=== PATIENT | female | born 2000 | race Caucasian/White ===

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

== ENCOUNTER 2019-01-25 00:12 | Outpatient (CLI) | payer OTHER ==
[~2019-01-25] VITALS: Ht 162.6 cm; Wt 89.9 kg
[~2019-01-25 00:12] MED LIST: PREN1TAB13 PO
[2019-01-25 00:22] VITALS: Ht 162.6 cm; Wt 89.9 kg
[2019-01-25 00:23] VITALS: BP 121/73; PULSE 103; RESP 17
--- NOTE | 2019-01-26 09:29 | PN ---
Triage Information Date/Time late entry note for 01/25/2019 Reason for visit: DFM Weeks of Gestation at 36+ wks ga CAPO 02/19/2019 presents with decreased movement She denies uterine contractions, denies vaginal bleeding or leaking fluid /Para Diabetes: none Hypertention: none Objective Vital Signs Date Temp Pulse Resp B/P (MAP) Pulse Ox O2 O2 Flow FiO2 Time Delivery Rate 01/25/19 97.9 103 17 121/73 Room Air 00:23 (89) Heart Rate: 140's Heart Rate Comments FHR tracing cat1 Contractions: None Results/Medications Imaging Results PROCEDURE: Biophysical profile. CLINICAL INDICATION: Decreased movement. TECHNIQUE: Multiple sonographic images of the pelvis were obtained with transabdominal technique. COMPARISON: 12/08/2018. FINDINGS: There is a single living intrauterine gestation with the fetus in a vertex position. The placenta is fundal in location, grade 1. heart tones of 144 beats per minute are identified. There is normal amniotic fluid volume with an FRANCIA of 13.4 cm. breathing movements = 2 Gross body movements = 2 tone = 2 Qualitative AFV = 2 IMPRESSION: Biophysical profile 8 out of 8. .Uriah Ching MD, Date Time Electronically viewed and signed by .Uriah Ching MD, on 01/25/2019 01:21 .T/ CC: LLOYD LE MD [phone] Disposition: Discharge Assessment/Plan patient reports feeling movement here in triage kick count instructions were given labor precautions were given patient instructed to f/u with obgyn clinic in 1-2 days LLOYD LE MD Jan 26, 2019 09:29
== END 2019-01-25 03:12 | disposition home or self-care (01) ==
LOC: OBT 00:12 → L-D 00:14 → OBT 03:12
PROVIDERS: ATTEND Specialist
DX: O36.8130 Decreased fetal movements, third trimester, not applicable or unspecified (principal); Z3A.36 36 weeks gestation of pregnancy
CPT/HCPCS: 76818; Z7500; G0463

== ENCOUNTER 2019-01-31 09:56 | Outpatient (CLI) | payer OTHER ==
[~2019-01-31] VITALS: Ht 162.6 cm; Wt 91.0 kg
[2019-01-31 10:25] VITALS: Ht 162.6 cm; Wt 91.0 kg
[2019-01-31 10:26] VITALS: BP 137/83; PULSE 108; RESP 20
--- NOTE | 2019-01-31 20:15 | PN ---
Triage Information Date/Time Reason for visit: Possible leakage of fluid Weeks of Gestation 7 weeks and 2 days /Para G1 Diabetes: none Hypertention: none Objective Vital Signs Date Temp Pulse Resp B/P (MAP) Pulse Ox O2 O2 Flow FiO2 Time Delivery Rate 01/31/19 97.7 108 20 137/83 Room Air 10:26 (101) Contractions: None Results/Medications Results 24 hrs Laboratory Tests Test 01/31/19 10:10 Membranes Rupture NEGATIVE Disposition: Discharge Assessment/Plan 18 years old 1 with single intrauterine at 37 weeks and 2 days complaining of possible leakage of fluid. She states good movement. She denies nausea, vomiting, shortness of breath, chest pain, headache, visual changes, vaginal bleeding. -FHR: No sign of metabolic acidosis- Category I -Contractions: None -SSE: No leakage or gush of fluid seen nitrazine and ROM plus negative -Ultrasound performed: Normal FRANCIA, BPP 8 out of 8 -Symptoms and sign of labor, preeclampsia, kick count discussed with patient, she voiced understanding. All of her questions answered. -Patient was discharged home in stable condition with the appropriate discharge instructions provided. I would like patient to have close follow-up with her primary physician or outpatient clinic in 1-2 days or return to triage for worsening symptoms or any other urgent concerns. PAUL SHORT Jan 31, 2019 20:15
== END 2019-01-31 11:54 | disposition home or self-care (01) ==
LOC: OBT 09:56 → L-D 09:56 → OBT 11:54
PROVIDERS: ATTEND Specialist
DX: O41.91X0 Disorder of amniotic fluid and membranes, unspecified, first trimester, not applicable or unspecified (principal); Z3A.01 Less than 8 weeks gestation of pregnancy
CPT/HCPCS: 76815; 76818; 84112; Z7500; G0463

== ENCOUNTER 2019-02-01 01:28 | Inpatient (IN) | payer OTHER ==
[~2019-02-01] VITALS: Ht 162.6 cm; Wt 92.2 kg
[2019-02-01 02:05] VITALS: Ht 162.6 cm; Wt 92.2 kg
[2019-02-01 02:12] VITALS: BP 139/81
[2019-02-01] MEDS ORDERED: LACTATED RINGER'S 1,000 ML IV PRN (04:55)
[2019-02-01] MEDS ORDERED: MISOPROSTOL 200 MCG TAB PR PRN (05:00)
[2019-02-01] MEDS ORDERED: OXYTOCIN 30 UNITS/LR 500 ML IV SCH (05:00)
[2019-02-01] MEDS ORDERED: CARBOPROST 250 MCG INJ IM PRN (05:00)
[2019-02-01] MEDS ORDERED: LIDOCAINE 1% (MPF) 30 ML INJ INJ PRN (05:00)
[2019-02-01] MEDS ORDERED: AMPICILLIN 2 GM/NS (PMX) 100 ML IV ONE (05:00)
[2019-02-01] MEDS ORDERED: IBUPROFEN 600 MG TAB PO PRN (05:00)
[2019-02-01] MEDS ORDERED: BUTORPHANOL 2 MG INJ IV PRN (05:00)
[2019-02-01] MEDS ORDERED: OXYTOCIN 30 UNITS/LR 500 ML IV PRN ×2 (05:00)
[2019-02-01] MEDS ORDERED: METHYLERGONOVINE 0.2 MG INJ IM PRN (05:00)
[2019-02-01] MEDS: LACTATED RINGER'S 1,000 ML IV SCH ×3 (05:20→23:27)
--- NOTE | 2019-02-01 08:39 | HP ---
Date/Time of Note Date/Time of Note DATE: 02/01/19 TIME: 08:20 OB - History Hx of Present Free Text/Dictation 18y.0 here at 37w3d with Uc's 2-3min which is mild in intensity and intact membrane. Initial VE /-3 Her care was initiated at 17w, was unevenful Initial BP 139/81 at triage repeated one was 134/90 ,but compare to her BP in October not significantly elevated. GBS status neg. admitted for expectant management and observation of BP with PIH lab,possible augmentation of labor . Chief Complaint: uc's with vaginal spotting Estimated Due Date: Feb 19, 2019 : 1 Para: 0 Spontaneous : 0 Therapeutic : 0 Care: Limited Care Ultrasounds: Normal mid trimester US Obstetrical Complications: None Medical Complications: None Past Family/Social History * Past Medical, Surgical, Family and Obstetric Histories reviewed from chart. Blood Type: O+ Rubella: immune RPR/VDRL: Negative GBS Status: Negative HBsAG: Negative OB Admission Exam Vital Signs Vital Signs Vital Signs Date Temp Pulse Resp B/P (MAP) Pulse Ox O2 O2 Flow FiO2 Time Delivery Rate 02/01/19 97.9 94 20 139/81 Room Air 02:12 (100) Physical Exam HEENT: WNL Heart: Rhythm Normal Lungs: Clear, Equal Abdomen: WNL Extremities: Normal Reflexes: Normal Cervical Dilatation: 1cm Effacement: Other (60%) Station: -3 Membranes: Intact Amniotic Fluid: Unevaluable Heart Rate: 130's Accelerations: Accelerations Present Decelerations: No Decelerations Varibility: Moderate Contractions on Admission: < 5 Minutes Apart Intensity: Mild Last 72 hours Lab Results CBC & BMP 02/01/19 05:05 Liver Function Test 02/01/19 05:05 Alanine Aminotransferase (ALT/SGPT) 12 L Albumin 3.4 Alkaline Phosphatase 150 H Aspartate Amino Transf (AST/SGOT) 27 Direct Bilirubin 0.00 Total Protein 6.8 OB Assessment/Plan Other Assessment: A IUP 37w3d in early labor R/O GHTN Plan: Expectant Management (PIH lab observation BP ,poss augmentation), Other TRAVIS CANALES MD Feb 01, 2019 08:30
--- NOTE | 2019-02-01 08:44 | QN ---
Documentation Comment EFM uc's q2min apart one variable deceleration noted down to 90's for 3min while I was standing. and SROM blood tinged small amount noted informed RN(Jennifer) regarding deceleration . TRAVIS CANALES MD Feb 01, 2019 08:44
[2019-02-01] MEDS ORDERED: AMPICILLIN 1 GM/NS (PMX) 50 ML IV SCH (09:00)
--- NOTE | 2019-02-01 12:11 | PREAC ---
Date/Time of Note Date/Time of Note DATE: 02/01/19 TIME: 12:10 Anesthesia Eval and Record Evaluation Time Pre-Procedure Interview DATE: 02/01/19 TIME: 12:10 Age 18 Sex female NPO: 8 hrs Preoperative diagnosis Labor Pain Planned procedure Labor Epidural Past Medical History Past Medical History: Includes Heme: Anemia : : (1), Para: (0), Gestational age: (37) Surgery & Anesthesia Issues No known issue Meds Anticoagulation: No Beta Luma within 24 hr: No Reason Beta Luma not given: Pt. not on B-Luma Reported Medications Pnv95/Ferrous Fumarate/FA ( Vitamins Tablet) 1 Each Tablet, 1 EACH PO, TAB 01/31/19 Current Medications Lactated Ringer's 1,000 ml @ 125 mls/hr Q8H IV Last administered on 02/01/19at 05:20; Admin Dose 125 MLS/HR; Start 02/01/19 at 04:55 Ampicillin 50 ml @ 100 mls/hr Q4H IV ; Start 02/01/19 at 09:00 Butorphanol Tartrate (Stadol) 2 mg Q2H PRN IV .PAIN SCALE 6-10; Start 02/01/19 at 05:00 Lidocaine (Xylocaine 1% (Mpf)) 30 ml ONCE PRN INJ .EPISIOTOMY; Start 02/01/19 at 05:00 Oxytocin/Lactated Ringer's 500 ml @ 500 mls/hr ONCE POST IV ; Start 02/01/19 at 05:00 Oxytocin/Lactated Ringer's 500 ml @ 125 mls/hr POST IV ; Start 02/01/19 at 05:00 Ibuprofen (Motrin) 600 mg ONCE PRN PO .PAIN 1-5; Start 02/01/19 at 05:00 Lactated Ringer's 1,000 ml @ 2,000 mls/hr Q30M PRN IV .ANESTHESIA; Start 02/01/19 at 04:55 Oxytocin/Lactated Ringer's 500 ml @ 0 mls/hr ONCE PRN IV .VAGINAL BLEEDING; Start 02/01/19 at 05:00 Methylergonovine Maleate (Methergine) 0.2 mg ONCE PRN IM .VAGINAL BLEEDING; Start 02/01/19 at 05:00 Carboprost Tromethamine (Hemabate) 250 mcg ONCE PRN IM .VAGINAL BLEEDING; Start 02/01/19 at 05:00 Misoprostol (Cytotec) 1,000 mcg ONCE PRN AK .VAGINAL BLEEDING; Start 02/01/19 at 05:00 Oxytocin/Lactated Ringer's 500 ml @ 0 mls/hr FOR AUGMENTATION PRN IV LABOR INDUCTION; Start 02/01/19 at 05:00 Meds reviewed: Yes Allergies Coded Allergies: No Known Allergy (Unverified , 02/01/19) Allergies Reviewed: Yes Labs/Studies Labs Reviewed: Reviewed by anesthesiologist Result Diagram: 02/01/19 0505 02/01/19 0505 Laboratory Tests 02/01/19 05:05 Blood Bank Test 02/01/19 05:05 Antibody Screen NEGATIVE Blood Type O POSITIVE Rh Immune Globulin Candidate NO test: Positive Studies: ECG (n/a), CXR (n/a) Pre-procedure Exam Last vitals Vital Signs Date Temp Pulse Resp B/P (MAP) Pulse Ox O2 O2 Flow FiO2 Time Delivery Rate 02/01/19 97.9 94 20 139/81 Room Air 02:12 (100) Airway: Adequate mouth opening, Adequate thyromental dist Mallampati: Mallampati II Teeth: Normal Lung: Normal Heart: Normal ASA Physical Status ASA physical status: 2 Emergency: None Planned Anesthetic Neuraxial: Epidural Planned Pain Management Epidural Pre-operative Attestations Prior to commencing anesthesia and surgery, the patient was re-evaluated, there was verification of: *The patient's identity *The results of appropriate recent lab work and preoperative vital signs *The above evaluation not changing prior to induction *Anesthetic plan, risk benefits, alternative and complications discussed with patient/family; questions answered; patient/family understands, accepts and wishes to proceed. KATRINA RACHEL MD Feb 01, 2019 12:11
[2019-02-01] MEDS ORDERED: NALOXONE (0.4 MG/ML) INJ IV PRN ×2 (12:30→14:00)
[2019-02-01] MEDS ORDERED: FENTAnyl 2MCG/ML-ROPIV 0.2% 100 ML BAG EPI SCH ×2 (12:30→14:00)
--- NOTE | 2019-02-01 13:38 | PAC ---
Date/Time of Note Date/Time of Note DATE: 02/01/19 TIME: 13:37 Post-Anesthesia Notes Post-Anesthesia Note Last documented vital signs Vital Signs Date Temp Pulse Resp B/P (MAP) Pulse Ox O2 O2 Flow FiO2 Time Delivery Rate 02/01/19 97.9 94 20 139/81 100 Room Air 13:12 (100) Activity: WNL Respiratory function: WNL Cardiovascular function: WNL Mental status: Baseline Pain reasonably controlled: Yes Hydration appropriate: Yes Nausea/Vomiting absent: Yes KATRINA RACHEL MD Feb 01, 2019 13:38
[2019-02-01] MEDS ORDERED: ACETAMINOPHEN 500 MG TAB ONE (20:46)
[2019-02-01] MEDS: ACETAMINOPHEN 500 MG TAB PO PRN (21:01)
[2019-02-01] MEDS: PIPER-TAZO 3.375 GM IV (PMX) 100 ML IVPB SCH (21:01)
[2019-02-01] MEDS ORDERED: MINERAL OIL LIGHT 10 ML VIAL TOP PRN (23:00)
[2019-02-02] MEDS: PIPER-TAZO 3.375 GM IV (PMX) 100 ML IVPB SCH ×5 (02:55→21:15)
[2019-02-02] MEDS: ACETAMINOPHEN 500 MG TAB PO PRN (03:07)
[2019-02-02] MEDS: OXYTOCIN 30 UNITS/LR 500 ML IV SCH ×2 (03:55→08:49)
[2019-02-02] MEDS ORDERED: MINERAL OIL 30ML CUP PO ONE (04:30)
[2019-02-02] MEDS ORDERED: OXYTOCIN 30 UNITS/LR 500 ML IV SCH (04:32)
--- NOTE | 2019-02-02 04:34 | LDN ---
Date/Time of Note Date/Time of Note DATE: 02/02/19 TIME: 04:34 Delivery Summary Weeks of Gestation Full-term Placenta Delivered: Spontaneously Meconium: Thick Episiotomy: No Laceration repair: Second-degree laceration repaired with 2 Vicryl suture Anesthesia type: Epidural (and local lidocaine) Estimated blood loss: 250 Sponge & Needle done & correct: Yes All needle counts correct: Yes Any foreign bodies felt in the: No Infant Delivery Information Sex Infant Sex: male Apgars 1 Minute: 9 5 Minute: 9 Suctioning Nose & mouth suctioned at negrita: Yes Delee suction performed: Yes Umbilical Cord Umbilical cord with: 3 Vessels Cord presentations: no nuchal cord Cord Blood was obtained: Yes Mother & Baby Disposition Disposition Baby's weight 6 pounds 9 ounces/ 2970 g Copies To: CC: MANSI FLORES MD ; LLOYD LE MD Feb 02, 2019 04:34
[2019-02-02] MEDS ORDERED: OXYTOCIN 30 UNITS/LR 500 ML IV PRN (05:00)
[2019-02-02] MEDS ORDERED: MISOPROSTOL 200 MCG TAB PR PRN (05:00)
[2019-02-02] MEDS ORDERED: ACETAMINOPHEN 325 MG TAB PO PRN ×2 (05:00)
[2019-02-02] MEDS ORDERED: CARBOPROST 250 MCG INJ IM PRN (05:00)
[2019-02-02] MEDS ORDERED: BENZOCAINE 20% 56 ML SPRAY TOP PRN (05:00)
[2019-02-02] MEDS ORDERED: DIBUCAINE 1% 30 GM OINT TOP PRN (05:00)
[2019-02-02] MEDS ORDERED: METHYLERGONOVINE 0.2 MG INJ IM PRN (05:00)
[2019-02-02] MEDS ORDERED: ONDANSETRON 4 MG INJ IV PRN (05:00)
[2019-02-02] MEDS ORDERED: MAGNESIUM HYDROXIDE 30ML CUP PO PRN (05:00)
[2019-02-02 06:50] VITALS: BP 135/84; PULSE 99; RESP 20
[2019-02-02 07:30] VITALS: BP 134/74; PULSE 101; RESP 20
[2019-02-02 08:00] VITALS: BP 116/73; PULSE 102; RESP 20
[2019-02-02] MEDS: WITCH HAZEL/GLYCERIN PAD PR PRN (08:50)
[2019-02-02] MEDS: SENNA/DOCUSATE NA (8.6MG/50MG) TAB PO PRN ×2 (08:50→21:14)
[2019-02-02] MEDS: LANOLIN HPA 1 PKT TOP PRN (08:51)
[2019-02-02] MEDS: LACTATED RINGER'S 1,000 ML IV SCH ×3 (08:54→20:55)
[2019-02-02] MEDS: LACTATED RINGER'S 1,000 ML IV* SCH ×3 (08:55→21:15)
[2019-02-02 12:00] VITALS: BP 128/69; PULSE 92; RESP 20
[2019-02-02] MEDS: IBUPROFEN 600 MG TAB PO PRN ×2 (12:04→18:13)
[2019-02-02 16:00] VITALS: BP 113/60; PULSE 94; RESP 18
[2019-02-02 21:00] VITALS: BP 130/84; PULSE 90; RESP 17
[2019-02-03] MEDS: PIPER-TAZO 3.375 GM IV (PMX) 100 ML IVPB SCH ×3 (03:19→15:18)
[2019-02-03 04:00] VITALS: BP 112/73; PULSE 92; RESP 18
[2019-02-03] MEDS: LACTATED RINGER'S 1,000 ML IV* SCH ×2 (04:32→20:32)
[2019-02-03] MEDS: LACTATED RINGER'S 1,000 ML IV SCH ×3 (04:55→20:55)
[2019-02-03 08:00] VITALS: BP 110/68; PULSE 101; RESP 18
[2019-02-03] MEDS: LANOLIN HPA 1 PKT TOP PRN (08:47)
[2019-02-03] MEDS: SENNA/DOCUSATE NA (8.6MG/50MG) TAB PO PRN (08:47)
--- NOTE | 2019-02-03 08:50 | DS ---
Date/Time of Note Date/Time of Note DATE: 02/03/19 TIME: 08:49 Obstetrical Discharge Record Final Diagnosis Final Diagnosis: Term delivered Vaginal Delivery Obstetrical Delivery: Spontaneous Complications Augmentation: Yes Induction: Yes Rupture of Membranes: No Condition on Discharge Physical Assessment Voiding: Yes Bowel Movement: Yes Breast: Soft, non-tender, Filling Fundus: Firm Abdomen and Incision: Soft not tender Calf Tenderness: No Patient Condition: Good MANSI FLORES MD Feb 03, 2019 08:50
[2019-02-03] MEDS: IBUPROFEN 600 MG TAB PO PRN (11:34)
[2019-02-03 16:00] VITALS: BP 126/81; PULSE 108; RESP 18
[2019-02-03 20:15] VITALS: BP 135/91; PULSE 104; RESP 20
[2019-02-04 04:21] VITALS: BP 135/71; PULSE 96; RESP 18
[2019-02-04 08:00] VITALS: BP 126/60; PULSE 95; RESP 18
[2019-02-04] MEDS: WITCH HAZEL/GLYCERIN PAD PR PRN (11:27)
[2019-02-04] MEDS: LANOLIN HPA 1 PKT TOP PRN (11:27)
[2019-02-04] MEDS: IBUPROFEN 600 MG TAB PO PRN (11:27)
--- NOTE | 2019-02-05 13:51 | DELSUM ---
Delivery Summary A-C Datetime Report Generated by CPN: 02/05/2019 13:50 DELIVERY PERSONNEL Chiropractic Doctor: Kashman, Rocio MATERNAL INFORMATION Delivery Anesthesia: Epidural Medications in Delivery: Pitocin 30 units in LR Delivery QBL (ml): 421 Placenta Cultured: Yes Maternal Complications: Maternal Fever LABOR SUMMARY EDC: 02/19/2019 00:00 No. Babies in Womb: 1 Attempted: No Labor Anesthesia: Epidural LABOR INFORMATION Reason for Induction: Not Applicable Onset of Labor: 01/31/2019 23:00 Complete Dilatation: 02/02/2019 03:21 Group B Beta Strep: Negative Antibiotics # of Doses: 2 Antibiotics Time of Last Dose: 02/02/2019 03:07 Steroids Given: None Reason Steroids Not Administered: Not Applicable MEMBRANES Membranes Rupture Method: Spontaneous Rupture of Membranes: 02/01/2019 08:09 Length of Rupture (hr): 19.62 Amniotic Fluid Color: Clear Amniotic Fluid Amount: Small Amniotic Fluid Odor: Normal STAGES OF LABOR Stage 1 hr: 28 Stage 1 min: 21 Stage 2 hr: 0 Stage 2 min: 25 Stage 3 hr: 0 Stage 3 min: 2 Total Time in Labor hr: 28 Total Time in Labor min: 48 VAGINAL DELIVERY Episiotomy: None Laceration Extension: Second Degree Laceration Type: Perineal Laceration Repair: Yes Initial Vag Sponge Count: 10 Final Vag Sponge Count: 20 Initial Vag Sharps Count: 1 Final Vag Sharps Count: 3 Sponge Count Correct: Yes Sharps Count Correct: Yes BABY A INFORMATION Delivery Date/Time: 02/02/2019 03:46 Method of Delivery: Vaginal Born in Route : No : N/A Forceps: N/A Vacuum Extraction: N/A Shoulder Dystocia : N/A SHOULDER DYSTOCIA BABY A Infant Delivery Date/Time: 02/02/2019 03:46 PRESENTATION/POSITION BABY A Presentation: Cephalic Cephalic Presentation: Vertex Breech Presentation: N/A PLACENTA INFORMATION BABY A Placenta Delivery Time : 02/02/2019 03:48 Placenta Method of Delivery: Expressed Placenta Status: Delivered SCORES BABY A Heart Rate 1 min: >100 bpm Resp Effort 1 min: Good Cry Reflex Irritability 1 min: Cough/Sneeze/Pulls Away Muscle Tone 1 min: Active Motion Color 1 min: Body [place], Extremit Blue Resuscitation Effort 1 min: Tactile Stimulation SCORE 1 MIN: 9 Heart Rate 5 min: >100 bpm Resp Effort 5 min: Good Cry Reflex Irritability 5 min: Cough/Sneeze/Pulls Away Muscle Tone 5 min: Active Motion Color 5 min: Body [place], Extremit Blue Resuscitation Effort 5 min: Tactile Stimulation SCORE 5 MIN: 9 INFANT INFORMATION BABY A Gestational Age at Delivery: 37.4 Gestational Status: Early Term- 37- 38.6 Weeks Infant Outcome : Liveborn, with signs of life Infant Condition : Stable Infant Sex: Male IDENTIFICATION/MEDS BABY A ID Band Number: [id number] ID Band Location: Right Leg; Left Arm Sensor Applied: Yes Sensor Number: [id number] Sensor Location : Cord Clamp Vitamin K Given : Not Given Erythromycin Given: Not Given WEIGHT/LENGTH BABY A Infant Birthweight (gm): 2970 Weight (lb): 6 Infant Weight (oz): 9 Length (in): 19.00 Length (cm): 48.26 CORD INFORMATION BABY A No. 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
== END 2019-02-04 13:50 | disposition home or self-care (01) | DRG 807 ==
LOC: OBT 01:28 → L-D 01:29 → OBT 04:35 → PP1 02-02 06:45
PROVIDERS: ADMIT Specialist; ATTEND Specialist
PROC: 10E0XZZ Delivery of Products of Conception, External Approach (ICD-10-PCS; principal; 2019-02-02)
PROC: 0KQM0ZZ Repair Perineum Muscle, Open Approach (ICD-10-PCS; 2019-02-02)
DX: O70.1 Second degree perineal laceration during delivery (principal); Z37.0 Single live birth; Z3A.37 37 weeks gestation of pregnancy
CPT/HCPCS: 62322; 80053; 81001; 84560; 85025; 85610; 85730; 86592; 86850; 86900; 86901; 87340; 88307; 99464; G0463; J2543; J2590; J3010; J7120